=== PATIENT | male | born 1975 | race Caucasian/White ===

== ENCOUNTER 2018-01-12 16:22 | Emergency (ER) | payer BC ==
[~2018-01-12 16:22] MED LIST: IOPAMIDOL (ISOVUE-300) 100 ML BTL ONE
[2018-01-12] MEDS ORDERED: EPINEPHrine 1 MG/ML INJ IM ONE (16:24)
[2018-01-12] MEDS ORDERED: methylPREDNISolone SOD SUCC 125 MG/2 ML VIAL ONE (16:24)
[2018-01-12] MEDS ORDERED: RANITIDINE 50 MG/2 ML VIAL IVP ONE (16:24)
--- NOTE | 2018-01-12 16:24 | EDPHY ---
H & P Time Seen by Provider: 01/12/18 16:24 HPI/ROS: CHIEF COMPLAINT: Allergic reaction possibly IV contrast HISTORY OF PRESENT ILLNESS: 42-year-old male arrives from the radiology department after he was receiving an outpatient CT scan of his abdomen pelvis for complaints of abdominal pain an after IV contrast was being infused T started complaining of itching, dysphagia, tonsillar glossal enlargement. He was brought to the emergency department immediately and prior to my evaluation he was given some IV Solu-Medrol and IV Benadryl. When I interview the patient he notes no prior history of allergic reaction. Complaining of continued "tingling sensation" in his throat as well as diffuse itching. He denies: Abdominal pain, nausea, vomiting, dyspnea, chest pain, headache Patient receiving an outpatient CT for ongoing epigastric and diffuse abdominal pain since April 2017. PRIMARY CARE PROVIDER: REVIEW OF SYSTEMS: 10 systems reviewed and negative with the exception of the elements mentioned in the history of present illness PAST MEDICAL & SURGICAL HISTORY: no prior history of anaphylaxis SOCIAL HISTORY: Nonsmoker PHYSICAL EXAM (Prior to examination, patient consented to physical exam, hands were washed and my usual and customary physical exam procedures followed) 1) GENERAL: Well-developed, well-nourished, alert and oriented. Appears anxious 2) HEAD: Normocephalic, atraumatic 3) HEENT: Pupils equal, round, reactive to light bilaterally. Sclera anicteric. Nasopharynx, oropharynx, clear, no lesions. Moist Mucous membranes. No visible tonsillar glossal enlargement. 4) NECK: Full range of motion, no meningeal signs. 5) LUNGS: Clear auscultation bilaterally, no wheezes, no rhonchi, no retractions. 6) HEART: Regular rate and rhythm, no murmur, no heave, no gallop. 7) ABDOMEN: No guarding, no rebound, no focal tenderness, negative McBurney's, negative Looney's, negative Rovsing's, negative peritoneal sign, unable to elicit abdominal pain on exam 8) MUSCULOSKELETAL: Moving all extremities, no focal areas of tenderness, no obvious trauma. No peripheral edema or discoloration. 9) BACK: No CVA tenderness, no midline vertebral tenderness, no fluctuance, no step-off, no obvious trauma, no visual or palpable abnormality. 10) SKIN: Urticaria to face 11) Psychiatric: Patient is oriented X 3, there is no agitation. DIFFERENTIAL DIAGNOSIS: In no particular include but limited to urticaria, anaphylaxis, dermatitis (Iris Gerardo) Constitutional: Initial Vital Signs Temperature (C) 36.7 C 01/12/18 16:25 Heart Rate 87 01/12/18 16:25 Respiratory Rate 18 01/12/18 16:25 Blood Pressure 131/87 H 01/12/18 16:25 O2 Sat (%) 98 01/12/18 16:25 O2 Delivery Mode Room Air Allergies/Adverse Reactions: Penicillins Allergy (Verified 01/12/18 16:24) phenobarbital Allergy (Verified 01/12/18 16:24) iv contrast Allergy (Uncoded 01/12/18 17:06) Home Medications: Medication Instructions Recorded Adderall 10 MG (*) 01/12/18 Atorvastatin Calcium 01/12/18 EPINEPHrine [Epipen 0.3 MG] 0.3 mg IM ONCE #2 syr 01/12/18 Propecia 01/12/18 predniSONE [prednisone 10mg (RX)] 40 mg PO DAILY 3 Days tab 01/12/18 Medical Decision Making - Diagnostics Imaging Results: Imaging Impressions Abdomen CT 01/12/18 15:30 Impression: 1. Mild contrast ALLERGY. 2. There is no CT-derived explanation for the patient's symptoms. ED Course/Re-evaluation: 4:26 p.m.: Patient will be given further epinephrine, ranitidine. He has already been given Solu-Medrol and Benadryl. He will be observed for period of time in the ER. 4:36 p.m.: Re-evaluation, feeling progressive improvement after epinephrine. Will continue to observe patient ER 5:00 p.m.: Care turned over to Dr. Marianne Hayes. Patient will be observed in the ER and if he remains asymptomatic will be discharged home. (Iris Gerardo) 5:45 p.m. Patient remained stable. He reports feeling significantly improved. He had been provided a prescription for a EpiPen and was also given prescription for ongoing prednisone. Instructed to use Benadryl as needed for itching and to take Pepcid on a regular basis for the next 3 days. (Marianne Hayes) - Data Points Medications Given: Discontinued Medications Diphenhydramine HCl (Benadryl Injection) 50 mg IVP EDNOW ONE Stop: 01/12/18 16:28 Last Admin: 01/12/18 16: Dose: 50 mg Epinephrine HCl (Epinephrine) 0.3 mg IM EDNOW ONE Stop: 01/12/18 16:25 Last Admin: 01/12/18 16: Dose: 0.3 mg Sodium Chloride (Ns) 1,000 mls @ 0 mls/hr IV ONCE ONE PRN Reason: Wide Open Stop: 01/12/18 16:29 Last Admin: 01/12/18 16:31 Dose: 1,000 mls Methylprednisolone Sodium Succinate (Solu-Medrol) 125 mg IVP EDNOW ONE Stop: 01/12/18 16: Last Admin: 01/12/18 16: Dose: 125 mg Ranitidine HCl (Zantac) 50 mg IVP EDNOW ONE Stop: 01/12/18 16:25 Last Admin: 01/12/18 16: Dose: 50 mg Departure - Departure Disposition: Home, Routine, Self-Care Clinical Impression: Allergic reaction Qualifiers: Encounter type: initial encounter Qualified Code(s): T78.40XA - Allergy, unspecified, initial encounter Condition: Good Instructions: Allergies (ED), General Allergic Reaction (ED) Additional Instructions: Take Benadryl, 25-50mg daily, as directed on the packaging as needed for itching. Take Prednisone as prescribed for the next three days. Take Pepcid (available over the counter), 20-40mg daily, as directed on the packaging for the next three days. If you develop return of itching, if you develop difficulty swallowing, breathing, or any other symptoms that concern you, return to the ER immediately. Referrals: Patient,NotPresent [Primary Care Provider] - As per Instructions Prescriptions: EPINEPHrine [Epipen 0.3 MG] 0.3 mg IM ONCE #2 syr predniSONE [prednisone 10mg (RX)] 40 mg PO DAILY 3 Days tab
[2018-01-12] MEDS ORDERED: methylPREDNISolone SOD SUCC 125 MG/2 ML VIAL IVP ONE (16:27)
[2018-01-12] MEDS ORDERED: NS 1,000 ML IV ONE (16:28)
[2018-01-12 17:04] VITALS: BP 118/81
== END 2018-01-12 17:43 | disposition home or self-care (01) ==
DX: T78.40XA Allergy, unspecified, initial encounter (principal)
CPT/HCPCS: 96374; J1200; J2780; J2930; Q9967